=== PATIENT | female | born 1990 | race Hispanic/Latino ===

== ENCOUNTER 2020-05-25 06:19 | Day surgery (SDC) | payer BC ==
[2020-05-25] MEDS ORDERED: SODIUM CHLORIDE 0.9% 500 ML 500 ML ONE (07:03)
[2020-05-25 07:43] LABS: Hematocrit 35.1 % (30.3-42.9); Hemoglobin 11.9 gm/dl (10.1-14.3); Mean Corpuscular HGB Conc 34 % (30-34); Mean Corpuscular Volume 88 fl (79-97); Platelet Count 222 K/mm3 (140-440); Red Blood Count 3.98 M/mm3 (3.65-5.03); Red Cell Distribution Width 13.5 % (13.2-15.2)
[2020-05-25] MEDS: SODIUM CHLORIDE 0.9% 500 ML 500 ML IV SCH ×2 (07:44→08:44)
[2020-05-25 07:47] LABS: BUN/Creatinine Ratio 15; Blood Urea Nitrogen 12 mg/dL (7-17); Calcium 9.2 mg/dL (8.4-10.2); Hemolysis Index 11
[2020-05-25 07:51] LABS: INR 2.31 (0.87-1.13)
[2020-05-25] MEDS ORDERED: HEPARIN 10,000 UNITS/10 ML VIAL ONE (08:00)
[2020-05-25] MEDS ORDERED: HEPARIN/NS 5000 UNIT/500ML 1,000 ML IR ONE (08:00)
[2020-05-25] MEDS: fentaNYL 100 MCG/2 ML INJ ONE ×3 (08:43→09:10)
[2020-05-25] MEDS: MIDAZOLAM 2 MG/2 ML INJ ONE ×3 (08:44→09:10)
[2020-05-25] MEDS: LIDOCAINE 1%/EPINEPHRINE 1:100,000 VIAL (20 ML) INFILTRATI ONE ×3 (08:44→08:54)
[2020-05-25] MEDS ORDERED: KETOROLAC 30 MG/1 ML INJ ONE (09:13)
--- NOTE | 2020-05-25 09:26 | Short Stay Summary ---
Short Stay Documentation Date of service: 05/25/20 - History Principal diagnosis: Bilateral lower extremity DVT, bilateral iliac vein compression H&P: obtained from office - Allergies and Medications Current Medications: Allergies latex Adverse Reaction (Verified 05/25/20 06:55) Itching Home Medications Medication Instructions Recorded Confirmed Last Taken Type Ergocalciferol (Vitamin D2) 50 mcg PO 1XW 05/25/20 05/25/20 05/22/20 History [Vitamin D2] Famotidine [Pepcid] 40 mg PO QHS 05/25/20 05/25/20 05/24/20 History Levothyroxine [Synthroid] 50 mcg PO QAM 05/25/20 05/25/20 05/24/20 History Methylphenidate HCl [Concerta] 54 mg PO DAILY 05/25/20 05/25/20 05/24/20 History Norethindrone [Incassia] 0.35 mg PO DAILY 05/25/20 05/25/20 05/24/20 History Pantoprazole [Protonix] 40 mg PO QDAY 05/25/20 05/25/20 05/24/20 History Rivaroxaban [Xarelto] 15 mg PO BID 05/25/20 05/25/20 05/25/20 05:30 History clonazePAM [ Klonopin] 0.5 mg PO BID 05/25/20 05/25/20 05/25/20 05:30 History trihexyphenidyL [Artane Tab] 2 mg PO BID 05/25/20 05/25/20 05/25/20 05:30 History Active Medications Sodium Chloride (Nacl 0.9% 500 Ml) 500 mls @ 50 mls/hr IV DIRECT PAMELA Last Admin: 05/25/20 08:44 Dose: 50 mls/hr Documented by: - Brief post op/procedure progress note Date of procedure: 05/25/20 Pre-op diagnosis: Bilateral lower extremity DVT, iliac vein stenosis Post-op diagnosis: same Procedure: Bilateral lower extremity venogram, intravascular ultrasound, stent placement Anesthesia: local Surgeon: YONATHAN HAWTHORNE Estimated blood loss: minimal Pathology: none Condition: stable - Disposition Condition at discharge: Good Disposition: [id number] TO HOME OR SELFCARE Short Stay Discharge Plan Activity: advance as tolerated Weight Bearing Status: Weight Bear as Tolerated Diet: regular Wound: keep clean and dry, per your surgeon's advice Follow up with: BRIAN PERSAUD MD [Primary Care Provider] - 7 Days
--- NOTE | 2020-05-25 09:33 | Operative Report ---
Operative Report Operative Report: Exam: Bilateral lower extremity venogram, intravascular ultrasound, bilateral lower extremity stent placement Clinical indication: Patient with a history of bilateral common iliac vein DVT with bilateral lower extremity swelling, patient has persistent bilateral lower extremity swelling which is improved somewhat since her diagnosis and being placed on anticoagulation. Date: 05/25/2020 Procedure: Following an explanation of the risk, benefits and alternatives; written informed consent was obtained. The patient was brought to the angiographic suite and placed in supine position on the examination table. Initial ultrasound evaluation of the legs demonstrated patent proximal femoral veins. The patient's legs were prepped and draped in the usual sterile fashion. 1% lidocaine was used for anesthesia. Under ultrasound guidance, the right proximal femoral vein was cannulated with a 7 cm 18-gauge needle. A 0.035 guidewire was advanced centrally. The needle was removed and a 5 Prydeinig sheath placed. Access to the left proximal femoral vein was obtained in a similar fashion and an additional 5 Prydeinig sheath placed. Contrast was then injected through both sheaths simultaneously. This demonstrates high-grade stenosis involving the patient's distal common iliac veins bilaterally and the proximal left common iliac vein. No intraluminal thrombus is identified on venography. The IVC is widely patent. A flush catheter was advanced over the guidewire through the right sheath. The catheter was advanced into the IVC to the proximal right atrium. Contrast was injected. This demonstrates opacification of the pulmonary arteries. No large pulmonary embolus is identified. The catheter was removed over the guidewire and the sheath upsized to 10 Prydeinig sheaths bilaterally. Intravascular ultrasound was performed first through the right sheath followed by the left sheath. Imaged vessels include the IVC, right common iliac vein, right external iliac vein, right common femoral vein, left common iliac vein, left external iliac vein and left common femoral vein. There is a long segment 70% stenosis involving the right common iliac vein extending into the external iliac vein. On the left, there is a short segment 70% stenosis involving the left common iliac vein at the bifurcation and an additional long segment 60% stenosis involving the distal common iliac vein with extension into the external iliac vein. A 14 mm x 120 mm Faber stent was advanced through the right sheath, a 14 mm x 120 mm Faber stent was advanced through the left sheath. The stents were deployed in kissing fashion to extend from the bifurcation into the distal external iliac veins bilaterally. Post and placement imaging demonstrated reduction of all stenoses with residual less than 10% stenosis. There is brisk flow from the common femoral veins into the IVC. The guidewires were removed. The sheaths were removed and hemostasis achieved using manual compression. A sterile dressing was applied. The patient tolerated the procedure well. There were no immediate postprocedure complications. Conscious sedation was performed under the guidance of radiologic nursing. Continuous cardiopulmonary monitoring was utilized. Impression: 1) Bilateral lower extremity venogram demonstrating resolution of previously demonstrated thrombus within the bilateral common iliac veins. There is significant stenosis involving the bilateral common iliac veins. 2) Intravascular ultrasound. Imaged vessels include the IVC, bilateral common iliac veins, bilateral external iliac veins and bilateral common femoral veins. This demonstrates a long segment 70% stenosis involving the right common iliac vein extending into the external iliac vein, a short segment 70% stenosis involving the proximal left common iliac vein at the bifurcation and a long segment 60% stenosis involving the distal common iliac vein with extension into the external iliac vein. 3) Treatment of the lesions with kissing 14 mm x 120 mm Faber stents with residual less than 10% stenosis.
[2020-05-25] MEDS ORDERED: oxyCODONE /ACETAMINOPHEN 5-325MG TAB PO ONE (11:07)
[2020-05-25] MEDS ORDERED: oxyCODONE /ACETAMINOPHEN 5-325MG TAB ONE (11:16)
[2020-05-25 11:37] VITALS: BP 103/76
== END 2020-05-25 12:20 | disposition home or self-care (01) ==
LOC: CATHLABREC 06:19
PROVIDERS: ATTEND Radiology Diagnostic Radiology
DX: I87.1 Compression of vein (principal); I82.90 Acute embolism and thrombosis of unspecified vein; F41.9 Anxiety disorder, unspecified; Z91.040 Latex allergy status; Z79.899 Other long term (current) drug therapy; Z90.49 Acquired absence of other specified parts of digestive tract; Z98.890 Other specified postprocedural states
CPT/HCPCS: 36415; 37238; 37239; 37252; 37253; 75822; 76937; 80048; 85027; 85610; 85730; 99156; 99157; C1753; C1769; C1876; C1894; J1644; J1885; J2250; J3010; J7040; Q9967